=== PATIENT | female | born 1995 | race Caucasian/White ===

== ENCOUNTER 2022-05-14 11:33 | Emergency (ER) | payer BC, OTHER ==
[~2022-05-14] VITALS: Ht 162.6 cm; Wt 111.8 kg
[2022-05-14] MEDS ORDERED: BACITRACIN TOP OINT 1 UD PKG TOP ONE (11:45)
[2022-05-14] MEDS ORDERED: TETANUS-DIPTH-ACEL PERTUSSIS 0.5ML SYR Tdap IM ONE (11:45)
[2022-05-14 13:00] VITALS: BP 208/109
[2022-05-14] MEDS ORDERED: CEPH-510 PO (13:00)
== END 2022-05-14 13:23 | disposition home or self-care (01) ==
LOC: ER 11:33
DX: S81.831A Puncture wound without foreign body, right lower leg, initial encounter (principal); Z90.49 Acquired absence of other specified parts of digestive tract; Z79.899 Other long term (current) drug therapy; Z88.5 Allergy status to narcotic agent; Z91.040 Latex allergy status; W33.01XA Accidental discharge of shotgun, initial encounter; Y93.89 Activity, other specified; Y92.89 Other specified places as the place of occurrence of the external cause; Y99.8 Other external cause status
CPT/HCPCS: 73562; 73590; 73620; 90471; 90715